=== PATIENT | male | born 1970 | race Caucasian/White ===

== ENCOUNTER 2019-02-10 13:36 | Inpatient (IN) | payer MEDICAID ==
[~2019-02-10] VITALS: Ht 182.9 cm; Wt 81.6 kg
[2019-02-10] MEDS ORDERED: SODIUM CHLORIDE 0.9% 1,000 ML IV ONE (15:13)
[2019-02-10] MEDS ORDERED: OLANZAPINE 10 MG/VIAL IM ONE (15:30)
[2019-02-10 16:37] LABS: BASOPHILS % 0.6 % (0.0-2.0); EOSINOPHILS % 0.3 % (0.0-5.0); HEMATOCRIT. 40.6 % (42.0-52.0); HEMOGLOBIN. 13.8 g/dL (14.0-18.0); LYMPHOCYTES % 34.8 % (20.0-50.0); MEAN CORPUSCULAR HEMOGLOBIN 28.8 pg (28.0-32.0); MEAN CORPUSCULAR VOLUME 84.7 fL (80.0-94.0); MONOCYTES % 4.2 % (2.0-8.0); NEUTROPHILS % 60.1 % (40.0-76.0); PLATELET 186 x1000/uL (130-400); RED BLOOD CELL COUNT 4.79 mill/uL (4.7-6.1); RED CELL DISTRIBUTION WIDTH 18.5 % (11.6-14.6)
[2019-02-10 16:45] LABS: CHLORIDE 108 mEq/L (98-107)
[2019-02-10 16:50] LABS: ETHANOL BLOOD 246 mg/dL
[2019-02-10 18:14] LABS: CLARITY URINE CLEAR (CLEAR); COLOR URINE YELLOW (YELLOW); KETONES URINE NEGATIVE (NEGATIVE); LEUKOCYTE ESTERASE URINE NEGATIVE (NEGATIVE); NITRITE URINE NEGATIVE (NEGATIVE); OCCULT BLOOD URINE 2+ (NEGATIVE); PH URINE 5.5 (4.5-8.0); PROTEIN URINE 2+ (NEGATIVE); SPECIFIC GRAVITY URINE 1.012 (1.005-1.030)
[2019-02-10 18:27] LABS: *AMPHETAMINES SCREEN URINE NEGATIVE (NEGATIVE); *BARBITURATES SCREEN URINE NEGATIVE (NEGATIVE); *BENZODIAZEPINES SCREEN URINE NEGATIVE (NEGATIVE); *COCAINE SCREEN URINE PRESUMTIVE POSITIVE (NEGATIVE); METHADONE URINE SCREEN PRESUMTIVE POSITIVE (NEGATIVE)
[2019-02-10 18:28] LABS: CANNABINOID URINE SCREEN NEGATIVE (NEGATIVE); OPIATES URINE SCREEN PRESUMTIVE POSITIVE (NEGATIVE); PHENCYCLIDINE URINE SCREEN NEGATIVE (NEGATIVE)
[2019-02-10] MEDS ORDERED: QUETIAPINE FUMARATE 50MG TABLET PO STA (20:31)
[2019-02-10] MEDS ORDERED: IBUPROFEN 400MG TABLET PO ONE (20:45)
[2019-02-10] MEDS ORDERED: ACETAMINOPHEN 325MG TABLET PO ONE (20:45)
[2019-02-11] MEDS ORDERED: FAMOTIDINE 20MG/2ML VIAL IV ONE (10:45)
[2019-02-11 13:07] LABS: BASOPHILS % 0.3 % (0.0-2.0); EOSINOPHILS % 0.1 % (0.0-5.0); HEMATOCRIT. 40.2 % (42.0-52.0); HEMOGLOBIN. 13.5 g/dL (14.0-18.0); MEAN CORPUSCULAR HEMOGLOBIN 28.7 pg (28.0-32.0); MEAN CORPUSCULAR VOLUME 85.5 fL (80.0-94.0); MEAN PLATELET VOLUME 8.6 fl (7.4-10.4); MONOCYTES % 5.4 % (2.0-8.0); NEUTROPHILS % 82.2 % (40.0-76.0); PLATELET 157 x1000/uL (130-400); RED CELL DISTRIBUTION WIDTH 18.5 % (11.6-14.6)
[2019-02-11 13:13] LABS: CHLORIDE 97 mEq/L (98-107)
[2019-02-11 13:16] LABS: AMYLASE 46 IU/L (25-115)
[2019-02-11] MEDS ORDERED: KETOROLAC 30MG/ML VIAL IV ONE (14:00)
[2019-02-11] MEDS ORDERED: ONDANSETRON HCL 4MG/2ML INJ IV STA (14:58)
[2019-02-11] MEDS ORDERED: SODIUM CHLORIDE 0.9% 1,000 ML IV ONE (14:58)
[2019-02-11] MEDS ORDERED: MORPHINE SULFATE 4 MG/ML CPJ (NOT FOR IM USE) IV STA (14:58)
[2019-02-11] MEDS ORDERED: IOHEXOL-300 100 ML BOTTLE ONE (15:27)
[2019-02-11 20:00] VITALS: BP 148/66
[2019-02-11 20:30] VITALS: BP 146/84
[2019-02-11] MEDS ORDERED: QUET300T2 PO (21:10)
[2019-02-11] MEDS ORDERED: ONDANSETRON HCL 4MG/2ML INJ IV PRN (21:45)
[2019-02-11] MEDS ORDERED: ACETAMINOPHEN 325MG TABLET PO PRN (21:45)
[2019-02-11] MEDS ORDERED: CLONIDINE 0.1MG TABLET PO PRN (21:45)
[2019-02-11] MEDS ORDERED: KETOROLAC 30MG/ML VIAL IV PRN (21:45)
[2019-02-11] MEDS ORDERED: HYDROMORPHONE HCL/PF 2MG/ML CPJ IV PRN (21:45)
[2019-02-11] MEDS: QUETIAPINE FUMARATE 50MG TABLET PO SCH (22:05)
[2019-02-11] MEDS ORDERED: MVI, ADULT NO.1 10 ML, FOLIC ACID 1 MG, THIAMINE HCL 100 MG in SODIUM CHLORIDE 0.9% 1,0... IV SCH ×4 (23:00)
[2019-02-12] MEDS: HYDROMORPHONE HCL/PF 2MG/ML CPJ IV PRN ×5 (03:34→20:40)
[2019-02-12 04:00] VITALS: BP 121/73
[2019-02-12] MEDS: SODIUM CHLORIDE 0.9% 1,000 ML IV SCH ×2 (07:03→18:50)
[2019-02-12 07:55] VITALS: BP 130/79
[2019-02-12 07:57] LABS: BASOPHILS % 0.5 % (0.0-2.0); HEMATOCRIT. 32.6 % (42.0-52.0); LYMPHOCYTES % 34.3 % (20.0-50.0); MEAN CORPUSCULAR VOLUME 85.7 fL (80.0-94.0); MEAN PLATELET VOLUME 8.7 fl (7.4-10.4); MONOCYTES % 7.3 % (2.0-8.0); NEUTROPHILS % 56.9 % (40.0-76.0); PLATELET 96 x1000/uL (130-400); RED CELL DISTRIBUTION WIDTH 18.2 % (11.6-14.6)
[2019-02-12 08:17] LABS: CHLORIDE 106 mEq/L (98-107)
[2019-02-12 11:33] VITALS: BP 132/79
[2019-02-12 12:00] VITALS: BP 128/76
[2019-02-12 16:00] VITALS: BP_SYST 126; BP_SYST 138; BP_DIAS 72; BP_DIAS 86
[2019-02-12 20:00] VITALS: BP 145/83
[2019-02-12] MEDS: QUETIAPINE FUMARATE 50MG TABLET PO SCH (21:39)
[2019-02-13 04:00] VITALS: BP 123/73
[2019-02-13] MEDS: LORAZEPAM 2MG/ML CPJ IV PRN ×3 (07:04→17:38)
[2019-02-13 07:37] LABS: BASOPHILS % 0.5 % (0.0-2.0); HEMATOCRIT. 39.1 % (42.0-52.0); HEMOGLOBIN. 12.8 g/dL (14.0-18.0); LYMPHOCYTES % 30.1 % (20.0-50.0); MEAN CORPUSCULAR HEMOGLOBIN 28.5 pg (28.0-32.0); MEAN PLATELET VOLUME 8.8 fl (7.4-10.4); MONOCYTES % 5.4 % (2.0-8.0); PLATELET 113 x1000/uL (130-400); RED BLOOD CELL COUNT 4.49 mill/uL (4.7-6.1); RED CELL DISTRIBUTION WIDTH 18.5 % (11.6-14.6)
[2019-02-13 08:55] LABS: CHLORIDE 102 mEq/L (98-107)
[2019-02-13 11:40] VITALS: BP 148/88
[2019-02-13] MEDS: HYDROMORPHONE HCL/PF 2MG/ML CPJ IV PRN ×2 (15:06→19:49)
[2019-02-13 15:16] VITALS: BP 127/82
[2019-02-13] MEDS ORDERED: QUETIAPINE FUMARATE 50MG TABLET PO SCH (17:00)
[2019-02-13] MEDS: QUETIAPINE FUMARATE 50MG TABLET PO SCH (18:54)
[2019-02-13 20:00] VITALS: BP 153/91
[2019-02-13] MEDS: SODIUM CHLORIDE 0.9% 1,000 ML IV SCH (23:35)
[2019-02-14] MEDS: HYDROMORPHONE HCL/PF 2MG/ML CPJ IV PRN ×3 (00:52→10:23)
[2019-02-14] MEDS: LORAZEPAM 2MG/ML CPJ IV PRN ×3 (03:02→12:33)
[2019-02-14 04:00] VITALS: BP 128/86
[2019-02-14] MEDS ORDERED: SODIUM BICARBONATE 4% (2.4MEQ) 5ML VIAL IV ONE (07:35)
[2019-02-14] MEDS ORDERED: LIDOCAINE HCL 1% 20ML VIAL (Pyxis) INJ ONE (07:36)
[2019-02-14 08:00] VITALS: BP 137/101
[2019-02-14] MEDS: QUETIAPINE FUMARATE 50MG TABLET PO SCH (09:41)
[2019-02-14 12:03] VITALS: BP 138/80
[2019-02-14 14:58] VITALS: BP 138/90
[2019-02-14] MEDS ORDERED: METFORMIN HCL 500MG TABLET PO SCH (17:50)
[2019-02-15] MEDS ORDERED: GLIMEPIRIDE 2MG TABLET PO SCH ×2 (07:20)
== END 2019-02-14 15:28 | disposition home or self-care (01) | DRG 282 ==
LOC: ER 14:43 → EDBD 14:43 → EDBEDREQ 02-11 16:09 → EDBEDREQSVC 02-11 16:09 → 5WST 02-11 16:18 → EDBEDREQ 02-11 16:20 → ENRESERV 02-11 16:44 → 5WST 02-11 18:38 → 6EST 02-12 11:23
PROVIDERS: ADMIT Internal Medicine; ATTEND Internal Medicine
PROC: 05H633Z Insertion of Infusion Device into Left Subclavian Vein, Percutaneous Approach (ICD-10-PCS; principal; 2019-02-14)
PROC: B547ZZA Ultrasonography of Left Subclavian Vein, Guidance (ICD-10-PCS; 2019-02-14)
PROC: B5171ZA Fluoroscopy of Left Subclavian Vein using Low Osmolar Contrast, Guidance (ICD-10-PCS; 2019-02-14)
DX: K85.20 Alcohol induced acute pancreatitis without necrosis or infection (principal); E43 Unspecified severe protein-calorie malnutrition; K83.1 Obstruction of bile duct; K70.9 Alcoholic liver disease, unspecified; F20.9 Schizophrenia, unspecified; K83.8 Other specified diseases of biliary tract; E83.51 Hypocalcemia; E11.9 Type 2 diabetes mellitus without complications; F19.10 Other psychoactive substance abuse, uncomplicated; F14.10 Cocaine abuse, uncomplicated; Y90.8 Blood alcohol level of 240 mg/100 ml or more; K86.3 Pseudocyst of pancreas; I10 Essential (primary) hypertension; K59.00 Constipation, unspecified; B19.20 Unspecified viral hepatitis C without hepatic coma; F32.9 Major depressive disorder, single episode, unspecified; R16.1 Splenomegaly, not elsewhere classified; K86.0 Alcohol-induced chronic pancreatitis; F10.129 Alcohol abuse with intoxication, unspecified; R74.0 Nonspecific elevation of levels of transaminase and lactic acid dehydrogenase [LDH]; Z90.49 Acquired absence of other specified parts of digestive tract; Z59.0 Homelessness
CPT/HCPCS: 36415; 36573; 71045; 74177; 74181; 75820; 76705; 80305; 80307; 80320; 80329; 82105; 82150; 82248; 82378; 83036; 83880; 84484; 86301; 93005; 96374; 99285; C1725; C1893; J1170; J1885; J2060; J2270; J2405; J3411; J3490; J7030; J7050; Q9967; G0480